=== PATIENT | female | born 1955 | race Caucasian/White ===

== ENCOUNTER 2016-05-27 15:10 | Emergency (ER) | payer MEDICAID ==
[2016-05-27 15:35] VITALS: BMI 23.3
[2016-05-27] MEDS ORDERED: METHYLPREDNISOLONE 125 MG/2 ML VIAL IV ONE (15:37)
[2016-05-27] MEDS ORDERED: Albuterol/Ipratropium Neb 3 ML NEB NEB ONE (15:37)
--- NOTE | 2016-05-27 15:40 | EDPRACDOC ---
- General Information Chief Complaint: Abdominal Pain Stated Complaint: ABD. PAIN Time Seen by Provider: 05/27/16 15:18 Information Source: Patient Mode Of Arrival: Car Home Medications: Home Medications Tiotropium [Spiriva Handihaler] 1 puff INH DAILY 01/16/14 Omeprazole [Prilosec] 20 mg PO BID 06/14/14 Fluticasone Propionate [Flonase] 1 spray LUIS ALFREDO DAILY 11/24/14 Aspirin (Enteric Coated) [Halfprin] 81 mg PO DAILY #90 tab 02/19/15 Metoprolol Tartrate [Lopressor] 12.5 mg PO BID #60 tablet 03/30/15 Albuterol Sulfate [Ventolin Hfa] 1 - 2 puff INH Q4H PRN #1 each 08/28/15 Acetaminophen Tablet [TYLENOL Tablet] 650 mg PO Q6H PRN #100 tablet 10/26/15 Albuterol Sulfate [Ventolin] 3 ml NEB Q4-6H PRN #120 nebu 10/26/15 Guaifenesin [Mucinex] 1,200 mg PO Q12 #120 tablet.er 10/26/15 Mirtazapine [Remeron] 15 mg PO HS #30 tablet 10/26/15 Cholecalciferol (Vitamin D3) [Vitamin D3] 2,000 unit PO DAILY 01/17/16 Furosemide [Lasix] 20 mg PO BID #60 tab 02/08/16 Prednisone [Deltasone] 20 mg PO BID #60 tablet 02/08/16 Benzonatate [Tessalon Perle] 200 mg PO TID PRN #14 capsule 05/27/16 Hydrocodone/Chlorphen Polis [Tussionex] 5 ml PO BID PRN #60 udc 05/27/16 Levofloxacin [Levaquin] 750 mg PO DAILY #10 tablet 05/27/16 Prednisone [Deltasone, Orasone] 20 mg PO DAILY #20 tab 05/27/16 Allergies/Adverse Reactions: Allergies Allergy/AdvReac Type Severity Reaction Status Date / Time No Known Allergies Allergy Verified 01/17/16 05:21 - History of Present Illness HPI: PRODUCTIVE COUGH FOR SEVERAL DAYS. NO FEVER MILD SHORTNESS OF BREATH. PAIN IN RIGHT UPPER QUADRANT MAINLY WHENEVER SHE COUGHS. UNCOMFORTABLE. NO FEVER, NO CHILLS, NO DIARRHEA. THE AT HOME DOING WELL. ED Past Medical History - History Reviewed Yes Nurses notes reviewed and agree except as marked - Patient Medical History Neurological History: Reports: Cerebrovascular Accident (2013) Cardiac History: Reports: Hypertension. Denies: Congestive Heart Failure (ECHO 07/2014: EF 60%. Normal function. Normal RV, RA, LA. Trace ) Respiratory History: Reports: Asthma (also with SEVERE, END STAGE PULMONARY FIBROSIS), COPD (SEVERE. on 2.5L NC@home.), Cough, Pneumonia GI/ History: Reports: PMH GI Yes/No Other Musculoskeletal History: Reports: Arthritis, Osteoarthritis Psychological History: Reports: Anxiety, Substance Use Disorder (hx of substance abuse). Denies: Depression Systemic History: Denies: Cancer, Diabetes (But sometimes has hyperglycemia with IV steroids.), Hypothyroidism Surgical History: Reports: Other (Bowel resection for bowel obstruction with a temporary colostomy). Denies: Hysterectomy - Family Medical History Reports: Hypertension (Mother, Father, Brother.), Stroke (Mother), Cardiac Disorders (Father). Denies: Diabetes, Cancer - Social Medical History Smoking Status: Former smoker Social History: Reports: Substance Use Disorder (hx of substance abuse) ETOH: None Substance Abuse: None Lives In: Home - Physical Exam Constitutional: No apparent distress, Alert, Cachectic. negative: Well appearing Oriented to: Time, Person, Place Last recorded Vital Signs: Last Vital Signs Temp 98.4 F 05/27/16 15:27 Pulse 114 05/27/16 15:27 Resp 20 05/27/16 15:27 BP 148/75 05/27/16 15:27 Pulse Ox 96 05/27/16 15:27 Oxygen Pulse Oxygen Saturation 96 O2 Device Room Air Oxygen Flow Rate Fraction of Inspired Oxygen ( FIO2) - HEENT Head: Normal Eye Exam: Normal Neck: Normal. negative: Edema, Limited ROM, Lymphadenopathy, Midline - Respiratory/Cardiovascular Respiratory: Rhonchi (MILD), Wheezes (MILD) Cardiovascular: Tachycardia. negative: Diastolic murmur, Systolic murmur - GI Auscultation: Normal Palpation: Normal Tenderness: Diffuse, Mild, RUQ. negative: Guarding, Rebound, Rigidity Fermin's Sign: Negative - Musculoskeletal Extremities: Pedal Edema (NON PITTING) - Integumentary Skin: Normal - Neurologic Memory Impaired: Normal Motor Function: Normal Mood Description: Normal Thought: Coherent Perception: Normal ED SOB MDM - Results Result Diagrams: 05/27/16 15:43 05/27/16 15:43 - EKG EKG #1 EKG Time: 15:41 -: Yes EKG interpreted by me Rate: bpm: 113 [place]: Normal Rhythm: ST Block: None Hypertrophy: None ST: Nonsp - Diagnostic Imaging Abdomen Image interpreted by: Radiologist Diagnostic Imaging Comments: Patient Name: LAURA AVINA LOC: ED : 1955 AGE: 60 Order Date:05/27/16 Date of Service:10/05 Report # [id number] Ord Physician: Viji Hahn MD Exam # [id number] Emergency Physician: Viji Hahn MD Exam(s): [id number] US/US GALLBLADDER-BILIARY (RUQ) CLINICAL DATA: Abdominal pain for 2 days. EXAM: US ABDOMEN LIMITED - RIGHT UPPER QUADRANT COMPARISON: CT 04/25/2015. FINDINGS: Gallbladder: No gallstones or wall thickening visualized. No sonographic Fermin sign noted by stand up forklift operator. Common bile duct: Diameter: 4 mm Liver: Evaluation of the liver is limited by body habitus. The hepatic echogenicity is mildly increased. There is a questionable hypoechoic lesion centrally in the right hepatic lobe, measuring up to 1.7 x 1.6 x 1.3 cm. There is no definite corresponding finding on previous CT. IMPRESSION: 1. No acute findings. No evidence of gallbladder or biliary disease. 2. Limited hepatic evaluation due to body habitus. Questionable hypoechoic lesion centrally in the right hepatic lobe. This would be better evaluated with follow-up CT. Electronically Signed By: Kelvin Allison M.D. On: 05/27/2016 19:42 Electronically Signed By: Kelvin Allison MD Electronically Signed Date/Time: 945 Dictate Date/Time: 05/27/161937 Technologist: Marysol Nunez Transcribed By: Rich Transcribed Date/Time: 05/27/161941 Chest Image interpreted by: Radiologist Diagnostic Imaging Comments: Patient Name: LAURA AVINA LOC: ED : 1955 AGE: 60 Order Date:05/27/16 Date of Service:10/05 Report # [id number] Ord Physician: Viji Hahn MD Exam # [id number] Emergency Physician: Viji Hahn MD Exam(s): [id number] RAD/DG CHEST 2V CLINICAL DATA: Shortness of breath and cough for several days EXAM: CHEST 2 VIEW COMPARISON: February 04, 2016 and December 30, 2015 FINDINGS: Extensive pulmonary fibrosis is noted throughout the lungs diffusely with a slight overall upper lobe prominence. There is no francisco edema or consolidation. The heart size is within normal limits. Pulmonary vascularity is within normal limits. No adenopathy is apparent. IMPRESSION: Extensive pulmonary fibrotic type change, stable. No francisco edema or consolidation. It should be noted that subtle pneumonia could easily be obscured by the degree of fibrosis present on both sides. No change in cardiac silhouette. Electronically Signed By: Kelvin Wright III, M.D. On: 05/27/2016 16:29 Electronically Signed By: Kelvin Wright III, MD Electronically Signed Date/Time: [id number] Dictate Date/Time: 05/27/16 1626 Technologist: Ricki Anderson Transcribed By: Rich Transcribed Date/Time: 05/27/16 1629 - Departure Final Diagnosis: Acute bronchitis, Abdominal pain Instructions: Acute Abdominal Pain (ED), Acute Bronchitis (ED) Education/Counseling Given To: Patient Education/Counseling Given Regarding: Diagnosis, Treatment, Prognosis Referrals: Rogerio Mayorga MD [Primary Care Provider] - One Week Prescriptions: New Levofloxacin [Levaquin] 750 mg PO DAILY #10 tablet Prednisone [Deltasone, Orasone] 20 mg PO DAILY #20 tab Benzonatate [Tessalon Perle] 200 mg PO TID PRN #14 capsule PRN Reason: Cough Hydrocodone/Chlorphen Polis [Tussionex] 5 ml PO BID PRN #60 udc PRN Reason: Cough No Action Tiotropium [Spiriva Handihaler] 1 puff INH DAILY Omeprazole [Prilosec] 20 mg PO BID Fluticasone Propionate [Flonase] 1 spray LUIS ALFREDO DAILY Aspirin (Enteric Coated) [Halfprin] 81 mg PO DAILY #90 tab Metoprolol Tartrate [Lopressor] 12.5 mg PO BID #60 tablet Albuterol Sulfate [Ventolin Hfa] 1 - 2 puff INH Q4H PRN #1 each PRN Reason: SHORTNESS OF BREATH Acetaminophen Tablet [TYLENOL Tablet] 650 mg PO Q6H PRN #100 tablet PRN Reason: Mild Pain Or Fever Above 100.4 Albuterol Sulfate [Ventolin] 3 ml NEB Q4-6H PRN #120 nebu PRN Reason: Wheezing Guaifenesin [Mucinex] 1,200 mg PO Q12 #120 tablet.er Mirtazapine [Remeron] 15 mg PO HS #30 tablet Cholecalciferol (Vitamin D3) [Vitamin D3] 2,000 unit PO DAILY Furosemide [Lasix] 20 mg PO BID #60 tab Prednisone [Deltasone] 20 mg PO BID #60 tablet
[2016-05-27 15:58] LABS: MPV 7.5 fL (7.4-10.4)
[2016-05-27 16:06] LABS: LEUKOCYTES/URINE NEG (NEGATIVE); NITRITE/URINE NEG (NEGATIVE); RBC/URINE 0-2 (0-5); URINE OCCULT BLOOD NEG (NEG/TRACE); WBC/URINE 0-2 (0-5)
[2016-05-27 16:09] LABS: PARTIAL THROMB. TIME 27.8 SEC (22-35)
[2016-05-27 16:16] LABS: BLOOD UREA NITROGEN 12 MG/DL (7-17); CALC CORRECTED 9.3 MG/DL (8.4-10.2); CALCIUM 8.9 MG/DL (8.4-10.2); CALCULATED OSMOLALITY 267 MOs/Kg (270-290); CHLORIDE 95 mEq/L (98-107); CPK TOTAL WITH POSSIBLE MB 52 IU/L (30-134); GLUCOSE 197 mg/dL (70-99); SODIUM LEVEL 136 mEq/L (137-146); TOTAL PROTEIN 6.6 G/DL (6.3-8.2)
--- NOTE | 2016-05-27 16:32 | DIRPT ---
CLINICAL DATA: Shortness of breath and cough for several days EXAM: CHEST 2 VIEW COMPARISON: February 04, 2016 and December 30, 2015 FINDINGS: Extensive pulmonary fibrosis is noted throughout the lungs diffusely with a slight overall upper lobe prominence. There is no francisco edema or consolidation. The heart size is within normal limits. Pulmonary vascularity is within normal limits. No adenopathy is apparent. IMPRESSION: Extensive pulmonary fibrotic type change, stable. No francisco edema or consolidation. It should be noted that subtle pneumonia could easily be obscured by the degree of fibrosis present on both sides. No change in cardiac silhouette. Electronically Signed By: Kelvin Wright III, M.D. On: 05/27/2016 16:29
[2016-05-27 17:01] LABS: SEG NEUTROPHIL 95 % (45-76)
[2016-05-27 17:56] VITALS: TEMP 98.4
--- NOTE | 2016-05-27 19:45 | DIRPT ---
CLINICAL DATA: Abdominal pain for 2 days. EXAM: US ABDOMEN LIMITED - RIGHT UPPER QUADRANT COMPARISON: CT 04/25/2015. FINDINGS: Gallbladder: No gallstones or wall thickening visualized. No sonographic Fermin sign noted by engine watchman. Common bile duct: Diameter: 4 mm Liver: Evaluation of the liver is limited by body habitus. The hepatic echogenicity is mildly increased. There is a questionable hypoechoic lesion centrally in the right hepatic lobe, measuring up to 1.7 x 1.6 x 1.3 cm. There is no definite corresponding finding on previous CT. IMPRESSION: 1. No acute findings. No evidence of gallbladder or biliary disease. 2. Limited hepatic evaluation due to body habitus. Questionable hypoechoic lesion centrally in the right hepatic lobe. This would be better evaluated with follow-up CT. Electronically Signed By: Kelvin Allison M.D. On: 05/27/2016 19:42
[2016-05-27 20:50] VITALS: BP 119/61; PULSE 107
== END 2016-05-27 20:44 | disposition home or self-care (01) ==
LOC: ED 15:10
DX: J20.9 Acute bronchitis, unspecified (principal); R10.11 Right upper quadrant pain; I10 Essential (primary) hypertension; J45.909 Unspecified asthma, uncomplicated; F41.9 Anxiety disorder, unspecified; Z79.899 Other long term (current) drug therapy
CPT/HCPCS: 36415; 71020; 76705; 80053; 81001; 82550; 83605; 84484; 85007; 85027; 85610; 85730; 87040; 87086; 93005; 94640; 96374; 99283; J2930; J7620